=== PATIENT | male | born 1990 | race American Indian/Alaskan Native ===

== ENCOUNTER 2017-01-28 09:27 | Emergency (ER) | payer SELFPAY ==
[2017-01-28 09:40] VITALS: BP 117/62
[2017-01-28] MEDS ORDERED: MOTRIN PO ONE (11:27)
[2017-01-28] MEDS ORDERED: TYLENOL PO ONE (11:27)
--- NOTE | 2017-01-28 11:27 | Emergency Department Report ---
ED General Adult HPI - General Chief complaint: Upper Respiratory Infection Stated complaint: FLU SYMPTOMS Time Seen by Provider: 01/28/17 10:55 Source: patient Mode of arrival: Ambulatory Limitations: No Limitations - History of Present Illness Initial comments: Patient is a 27-year-old male with no significant past medical history who presents with cough and myalgias and headaches that have been going on for the last 2 days. Patient states that he feels like he has a viral syndrome. He states that he's had some subjective fever. He is not tried any over-the- counter medications. He states that his body pain is a 3 out of 10 all over his body is achy type of pain. It is intermittent he states that coughing makes it worse and that nothing makes symptoms better. Pt states that he has been coughing brown sputum. - Related Data Previous Rx's Medication Instructions Recorded Last Taken Type Guaifen/Phenyleph/Acetaminophn 1 each PO Q8HR PRN #30 tablet 01/28/17 Unknown Rx [Tylenol Cold Head Congest Cplt] Ibuprofen [Motrin 400 MG tab] 400 mg PO Q8H PRN #30 tablet 01/28/17 Unknown Rx Allergies Allergy/AdvReac Type Severity Reaction Status Date / Time No Known Allergies Allergy Unverified 01/28/17 09:37 ED Review of Systems ROS: Stated complaint: FLU SYMPTOMS Other details as noted in HPI Constitutional: fever. denies: chills Eyes: denies: eye pain, eye discharge, vision change ENT: denies: ear pain, throat pain Respiratory: cough. denies: shortness of breath, wheezing Cardiovascular: denies: chest pain, palpitations Endocrine: no symptoms reported Gastrointestinal: denies: abdominal pain, nausea, diarrhea Genitourinary: denies: urgency, dysuria Musculoskeletal: myalgia. denies: back pain, joint swelling, arthralgia Skin: denies: rash, lesions Neurological: denies: headache, weakness, paresthesias Psychiatric: denies: anxiety, depression Hematological/Lymphatic: denies: easy bleeding, easy bruising ED Past Medical Hx - Past Medical History Previous Medical History?: No - Surgical History Past Surgical History?: No - Social History Smoking Status: Current Every Day Smoker Substance Use Type: Other - Medications Home Medications: Home Medications Medication Instructions Recorded Confirmed Last Taken Type Guaifen/Phenyleph/Acetaminophn 1 each PO Q8HR PRN #30 tablet 01/28/17 Unknown Rx [Tylenol Cold Head Congest Cplt] Ibuprofen [Motrin 400 MG tab] 400 mg PO Q8H PRN #30 tablet 01/28/17 Unknown Rx ED Physical Exam - General Limitations: No Limitations General appearance: alert, in no apparent distress - Head Head exam: Present: atraumatic, normocephalic - Eye Eye exam: Present: normal appearance - ENT ENT exam: Present: mucous membranes moist - Neck Neck exam: Present: normal inspection - Respiratory Respiratory exam: Present: normal lung sounds bilaterally. Absent: respiratory distress - Cardiovascular Cardiovascular Exam: Present: regular rate, normal rhythm. Absent: systolic murmur, diastolic murmur, rubs, gallop - GI/Abdominal GI/Abdominal exam: Present: soft, normal bowel sounds - Rectal Rectal exam: Present: deferred - Extremities Exam Extremities exam: Present: normal inspection - Back Exam Back exam: Present: normal inspection - Neurological Exam Neurological exam: Present: alert, oriented X3 - Psychiatric Psychiatric exam: Present: normal affect, normal mood - Skin Skin exam: Present: warm, dry, intact, normal color. Absent: rash ED Course Vital Signs 01/28/17 01/28/17 09:37 11:38 Temperature 98.9 F Pulse Rate 60 Respiratory 18 18 Rate Blood Pressure 117/62 O2 Sat by Pulse 97 Oximetry ED Medical Decision Making - Medical Decision Making Chief medical diagnosis: Upper respiratory infection secondary to Stephenson virus Differential multiple diagnosis: Sinusitis, influenza I will give patient oral Tylenol and oral acetaminophen The patient's clinical symptoms having a viral illness I will send patient home with rest and have him follow return precautions to come back to the emergency department. Discussed plan with the patient he agrees plan. Critical care attestation.: If time is entered above; I have spent that time in minutes in the direct care of this critically ill patient, excluding procedure time. ED Disposition Clinical Impression: Viral syndrome Disposition: DC-01 TO HOME OR SELFCARE Is pt being admited?: No Does the pt Need Aspirin: No Condition: Stable Prescriptions: Guaifen/Phenyleph/Acetaminophn [Tylenol Cold Head Congest Cplt] 1 each PO Q8HR PRN #30 tablet PRN Reason: Headache Ibuprofen [Motrin 400 MG tab] 400 mg PO Q8H PRN #30 tablet PRN Reason: Pain Referrals: PRIMARY CARE, [Primary Care Provider] - 3-5 Days Forms: Work/School Release Form(ED) Time of Disposition: 11:30
== END 2017-01-28 11:47 | disposition home or self-care (01) ==
LOC: ED 09:27
DX: B34.9 Viral infection, unspecified (principal); F17.200 Nicotine dependence, unspecified, uncomplicated
CPT/HCPCS: 99282

== ENCOUNTER 2017-05-14 11:39 | Emergency (ER) | payer OTHER ==
[2017-05-14 12:02] VITALS: BP 118/68
--- NOTE | 2017-05-14 12:31 | Emergency Department Report ---
Chief Complaint: Upper Respiratory Infection Stated Complaint: FLU LIKE SYMPTOMS - HPI History of Present Illness: 27-year-old malesignificant past medical history presents with complaint of sore throat runny nose and cough for 4-5 days - ROS Review of Systems: Worsening URI symptoms 4-5 days - Exam Vital Signs: Vital Signs 05/14/17 11:57 Temperature 98.3 F Pulse Rate 64 Blood Pressure 118/68 O2 Sat by Pulse 96 Oximetry Physical Exam: Lungs clear to auscultation MSE screening note: Focused history and physical exam performed. Due to findings the following was ordered: Screening Assessment/Plan/Differential Dx: URI versus flu 1- This initial assessment/diagnostic orders/clinical plan/ treatment(s) is/are subject to change based on pt's health status, clinical progression and re- assessment by fellow clinical providers in the ED. Further treatment and workup at subsequent clinical provers discretion. Patient/guardians urged not to elope from ED as their condition may be serious if not clinically assessed and managed. 2-flu swab sent, chest x-ray ED Disposition for MSE Condition: Stable
--- NOTE | 2017-05-14 13:15 | XRay Report ---
ROUTINE CHEST, TWO VIEWS: HISTORY: Cough. The trachea, heart, mediastinal contour, lung quinones and bony thorax are unremarkable. IMPRESSION: Unremarkable chest x-ray.
--- NOTE | 2017-05-14 13:34 | Emergency Department Report ---
ED General Adult HPI - General Chief complaint: Upper Respiratory Infection Stated complaint: FLU LIKE SYMPTOMS Time Seen by Provider: 05/14/17 13:21 Source: patient Mode of arrival: Ambulatory Limitations: No Limitations - History of Present Illness Initial comments: 24 year old male presents with runny nose, cough, congestion, sore scratchy throat for about 4 days. She states she has been taking [id number] Danielle- [place] and Benadryl with minimal relief. He said he is having substernal chest pain and pressure like headache that is not relieved denies fever, chills , shortness of breath, wheezing, nausea, vomiting, diarrhea - Related Data Previous Rx's Medication Instructions Recorded Last Taken Type Guaifen/Phenyleph/Acetaminophn 1 each PO Q8HR PRN #30 tablet 01/28/17 Unknown Rx [Tylenol Cold Head Congest Cplt] Ibuprofen [Motrin 400 MG tab] 400 mg PO Q8H PRN #30 tablet 01/28/17 Unknown Rx ALBUTEROL Inhaler [ProAir HFA 2 puff IH QID PRN #1 inhalation 05/14/17 Unknown Rx Inhaler] Azithromycin [Zithromax Z-NU] 250 mg PO QDAY #6 tablet 05/14/17 Unknown Rx Prednisone [predniSONE 10 mg 10 mg PO .TAPER #1 tab.ds.pk 05/14/17 Unknown Rx (6-Day Pack, 21 Tabs)] Allergies Allergy/AdvReac Type Severity Reaction Status Date / Time No Known Allergies Allergy Verified 05/14/17 11:56 ED Review of Systems ROS: Stated complaint: FLU LIKE SYMPTOMS Other details as noted in HPI Constitutional: denies: chills, fever Eyes: denies: eye pain, eye discharge, vision change ENT: throat pain, congestion. denies: ear pain Respiratory: cough. denies: shortness of breath, wheezing Cardiovascular: denies: chest pain, palpitations Endocrine: no symptoms reported Gastrointestinal: denies: abdominal pain, nausea, diarrhea Genitourinary: denies: urgency, dysuria Musculoskeletal: denies: back pain, joint swelling, arthralgia Skin: denies: rash, lesions Neurological: denies: headache, weakness, paresthesias Psychiatric: denies: anxiety, depression Hematological/Lymphatic: denies: easy bleeding, easy bruising ED Past Medical Hx - Past Medical History Previous Medical History?: No - Surgical History Past Surgical History?: No - Social History Smoking Status: Current Every Day Smoker Substance Use Type: Other - Medications Home Medications: Home Medications Medication Instructions Recorded Confirmed Last Taken Type Guaifen/Phenyleph/Acetaminophn 1 each PO Q8HR PRN #30 tablet 01/28/17 Unknown Rx [Tylenol Cold Head Congest Cplt] Ibuprofen [Motrin 400 MG tab] 400 mg PO Q8H PRN #30 tablet 01/28/17 Unknown Rx ALBUTEROL Inhaler [ProAir HFA 2 puff IH QID PRN #1 inhalation 05/14/17 Unknown Rx Inhaler] Azithromycin [Zithromax Z-NU] 250 mg PO QDAY #6 tablet 05/14/17 Unknown Rx Prednisone [predniSONE 10 mg 10 mg PO .TAPER #1 tab.ds.pk 05/14/17 Unknown Rx (6-Day Pack, 21 Tabs)] ED Physical Exam - General Limitations: No Limitations General appearance: alert, in no apparent distress - Head Head exam: Present: atraumatic, normocephalic - Eye Eye exam: Present: normal appearance - ENT ENT exam: Present: normal orophraynx, mucous membranes moist, TM's normal bilaterally - Neck Neck exam: Present: normal inspection, full ROM. Absent: tenderness - Respiratory Respiratory exam: Present: normal lung sounds bilaterally. Absent: respiratory distress, wheezes, rales, rhonchi, stridor - Cardiovascular Cardiovascular Exam: Present: regular rate, normal rhythm. Absent: systolic murmur, diastolic murmur, rubs, gallop - GI/Abdominal GI/Abdominal exam: Present: soft, normal bowel sounds - Rectal Rectal exam: Present: deferred - Extremities Exam Extremities exam: Present: normal inspection - Back Exam Back exam: Present: normal inspection - Neurological Exam Neurological exam: Present: alert, oriented X3 - Psychiatric Psychiatric exam: Present: normal affect, normal mood - Skin Skin exam: Present: warm, dry, intact, normal color. Absent: rash ED Course Vital Signs 05/14/17 11:57 Temperature 98.3 F Pulse Rate 64 Blood Pressure 118/68 O2 Sat by Pulse 96 Oximetry ED Medical Decision Making - Medical Decision Making patient is resting comfortably at this time. VSS and NAD at this time. stable for DC. Critical care attestation.: If time is entered above; I have spent that time in minutes in the direct care of this critically ill patient, excluding procedure time. ED Disposition Clinical Impression: URI, acute, Acute bronchitis Disposition: TO HOME OR SELFCARE Is pt being admited?: No Does the pt Need Aspirin: No Condition: Good Instructions: Acute Bronchitis (ED) Prescriptions: ALBUTEROL Inhaler [ProAir HFA Inhaler] 2 puff IH QID PRN #1 inhalation PRN Reason: Shortness Of Breath Azithromycin [Zithromax Z-NU] 250 mg PO QDAY #6 tablet Prednisone [predniSONE 10 mg (6-Day Pack, 21 Tabs)] 10 mg PO .TAPER #1 tab.ds.pk Referrals: YI MCCARTY MD [Staff Physician] - 3-5 Days Forms: Work/School Release Form(ED) Time of Disposition: 13:34
== END 2017-05-14 13:59 | disposition home or self-care (01) ==
LOC: ED 11:39
DX: J20.9 Acute bronchitis, unspecified (principal); J06.9 Acute upper respiratory infection, unspecified; F17.200 Nicotine dependence, unspecified, uncomplicated
CPT/HCPCS: 71020; 87400; 99283

== ENCOUNTER 2017-09-03 16:41 | Emergency (ER) | payer SELFPAY ==
[2017-09-03 16:52] VITALS: BP 124/80
--- NOTE | 2017-09-03 18:05 | XRay Report ---
FINAL REPORT EXAM: XR WRIST 3+V LT HISTORY: pain and swelling TECHNIQUE: 3 views of the left wrist PRIORS: None. FINDINGS: There is no radiographic evidence of definite acute fracture or dislocation. No evidence of osseous lesion. Joint spaces are maintained. There is no evidence of significant arthrosis. IMPRESSION: No acute skeletal pathology
--- NOTE | 2017-09-03 20:09 | Emergency Department Report ---
ED Upper Extremity Inj HPI - General Chief Complaint: Extremity Injury, Upper Stated Complaint: LEFT WRIST INJURY Time Seen by Provider: 09/03/17 20:00 Source: patient Mode of arrival: Ambulatory Limitations: No Limitations - History of Present Illness Initial Comments: Patient is a 27-year-old -[place] male who is presenting with some swelling to the dorsum of his left hand. Patient states there was no trauma there's been no fever no redness. Patient said he had a small knot on the back of his hand and is now gone and this just some area of swelling. Patient states feels like his hands tight. Patient states the pain is a 3 out of 10 in severity. - Related Data Previous Rx's Medication Instructions Recorded Last Taken Type Guaifen/Phenyleph/Acetaminophn 1 each PO Q8HR PRN #30 tablet 01/28/17 Unknown Rx [Tylenol Cold Head Congest Cplt] Ibuprofen [Motrin 400 MG tab] 400 mg PO Q8H PRN #30 tablet 01/28/17 Unknown Rx ALBUTEROL Inhaler [ProAir HFA 2 puff IH QID PRN #1 inhalation 05/14/17 Unknown Rx Inhaler] Azithromycin [Zithromax Z-NU] 250 mg PO QDAY #6 tablet 05/14/17 Unknown Rx Prednisone [predniSONE 10 mg 10 mg PO .TAPER #1 tab.ds.pk 05/14/17 Unknown Rx (6-Day Pack, 21 Tabs)] Allergies Allergy/AdvReac Type Severity Reaction Status Date / Time prednisone Allergy Shortness Verified 09/03/17 16:53 of Breath ED Review of Systems ROS: Stated complaint: LEFT WRIST INJURY Other details as noted in HPI Comment: All other systems reviewed and negative ED Past Medical Hx - Past Medical History Previous Medical History?: No - Surgical History Past Surgical History?: No - Social History Smoking Status: Current Every Day Smoker Substance Use Type: None - Medications Home Medications: Home Medications Medication Instructions Recorded Confirmed Last Taken Type Guaifen/Phenyleph/Acetaminophn 1 each PO Q8HR PRN #30 tablet 01/28/17 Unknown Rx [Tylenol Cold Head Congest Cplt] Ibuprofen [Motrin 400 MG tab] 400 mg PO Q8H PRN #30 tablet 01/28/17 Unknown Rx ALBUTEROL Inhaler [ProAir HFA 2 puff IH QID PRN #1 inhalation 05/14/17 Unknown Rx Inhaler] Azithromycin [Zithromax Z-NU] 250 mg PO QDAY #6 tablet 05/14/17 Unknown Rx Prednisone [predniSONE 10 mg 10 mg PO .TAPER #1 tab.ds.pk 05/14/17 Unknown Rx (6-Day Pack, 21 Tabs)] ED Physical Exam - General Limitations: No Limitations General appearance: alert, in no apparent distress - Head Head exam: Present: atraumatic, normocephalic - Eye Eye exam: Present: normal appearance - ENT ENT exam: Present: mucous membranes moist - Neck Neck exam: Present: normal inspection - Respiratory Respiratory exam: Present: normal lung sounds bilaterally. Absent: respiratory distress - Cardiovascular Cardiovascular Exam: Present: regular rate, normal rhythm. Absent: systolic murmur, diastolic murmur, rubs, gallop - GI/Abdominal GI/Abdominal exam: Present: soft, normal bowel sounds - Rectal Rectal exam: Present: deferred - Extremities Exam Extremities exam: Present: normal inspection, other (mild swelling to the dorsum of the left hand just proximal to the second and third digit. Patient has full range of motion. Patient has no exquisite bony tenderness.) - Back Exam Back exam: Present: normal inspection - Neurological Exam Neurological exam: Present: alert, oriented X3 - Psychiatric Psychiatric exam: Present: normal affect, normal mood - Skin Skin exam: Present: warm, dry, intact, normal color. Absent: rash ED Course Vital Signs 09/03/17 16:51 Temperature 98.2 F Pulse Rate 68 Respiratory 18 Rate Blood Pressure 124/80 O2 Sat by Pulse 100 Oximetry ED Medical Decision Making - Medical Decision Making Patient most likely has a ganglion cyst that ruptured. Patient been given advised that he should use Charli wrap and ice. Patient is not medical emergency and is decided to take some subcutaneous simple medical advise him that we've given and followed [facility]. Critical care attestation.: If time is entered above; I have spent that time in minutes in the direct care of this critically ill patient, excluding procedure time. ED Disposition Clinical Impression: Ganglion cyst of dorsum of left wrist Disposition: Z-07 MED SCREENING EXAM-LEFT Is pt being admited?: No Does the pt Need Aspirin: No Condition: Stable Referrals: [facility] [Outside] - 3-5 Days
== END 2017-09-03 21:00 | disposition left against medical advice (07) ==
LOC: ED 16:41
DX: M67.432 Ganglion, left wrist (principal); F17.200 Nicotine dependence, unspecified, uncomplicated; Z88.8 Allergy status to other drugs, medicaments and biological substances
CPT/HCPCS: 99283

== ENCOUNTER 2021-08-28 13:18 | Emergency (ER) | payer SELFPAY | END 2021-08-28 15:25 | disposition left against medical advice (07) | LOC: ED 13:18 | DX: K62.5 Hemorrhage of anus and rectum (principal); Z53.21 Procedure and treatment not carried out due to patient leaving prior to being seen by health care provider ==